=== PATIENT | female | born 1955 | race Hispanic/Latino ===

== ENCOUNTER → 2022-11-26 | Outpatient (CLI) | payer OTHER, MEDICARE ==
[~2022-11-26] MED LIST: REGADENOSON 0.4 MG/5 ML PF SYG IVP SCH
== END | disposition home or self-care (01) ==
LOC: RAH 08:33
PROVIDERS: ATTEND Internal Medicine
DX: R07.9 Chest pain, unspecified (principal)
CPT/HCPCS: 78452; 96374; 93017; J2785; A9500 ×2

== ENCOUNTER → 2023-02-19 | Outpatient (CLI) | payer OTHER, MEDICARE | END | disposition home or self-care (01) | LOC: SHCH 08:34 | PROVIDERS: ATTEND Internal Medicine | DX: R07.9 Chest pain, unspecified (principal); E11.9 Type 2 diabetes mellitus without complications; E78.5 Hyperlipidemia, unspecified; I10 Essential (primary) hypertension | CPT/HCPCS: 93306 ==

== ENCOUNTER → 2023-12-28 | Outpatient (CLI) | payer MEDICARE | END | disposition home or self-care (01) | LOC: RAH 09:36 | PROVIDERS: ATTEND Internal Medicine | DX: K80.20 Calculus of gallbladder without cholecystitis without obstruction (principal); R10.9 Unspecified abdominal pain; I70.90 Unspecified atherosclerosis | CPT/HCPCS: 76700 ==

== ENCOUNTER 2024-07-22 06:33 | Day surgery (SDC) | payer MEDICARE ==
--- NOTE | 2024-07-19 10:41 | EKG ---
[facility] Test Date: 2024-07-19 Test Time: 10:29:33 Pat Name: TAJ GAMEZ Department: [facility] Room: Gender: F Deputy Controller: [id number] : 1955 Requested By: ANJEL VARELA Order Number: [id number] Reading MD: Jeremiah Smith Measurements Intervals [place] Rate: 65 P: 41 NC: 141 QRS: 53 QRSD: 85 T: 52 QT: 398 QTc: 414 Interpretive Statements Sinus rhythm No previous ECG available for comparison Electronically Signed On 07-19-2024 11:21:40 CDT by Jeremiah Smith Please click the below link to view image of tracing.
[2024-07-19 10:58] LABS: BASOPHILS # (AUTO) 0.03 K/uL (0.00-0.20); BASOPHILS % (AUTO) 0.4 % (0.0-5.0); EOSINOPHILS # (AUTO) 0.22 K/uL (0.00-0.70); EOSINOPHILS % (AUTO) 3.3 % (0.0-8.0); HEMATOCRIT 39.9 % (36-48); IMMATURE GRANULOCYTE ABSOLUTE 0.03 K/uL (0-1); LYMPHOCYTES # (AUTO) 1.8 K/uL (1.0-4.8); LYMPHOCYTES % (AUTO) 27.1 % (21.0-51.0); MEAN CORPUSCULAR HEMOGLOBIN 28.3 pg (27.0-33.0); MEAN CORPUSCULAR HGB CONC 32.1 g/dL (32.0-36.0); MEAN CORPUSCULAR VOLUME 88.3 fL (79-99); MONOCYTES # (AUTO) 0.6 K/uL (0.1-1.0); MONOCYTES % (AUTO) 8.4 % (3.0-13.0); NEUTROPHILS % (AUTO) 60.4 % (40.0-77.0); PLATELET COUNT (AUTO) 140 K/uL (130-400); RED BLOOD CELL COUNT(AUTO) 4.52 MIL/uL (4.00-5.50); RED CELL DISTRIBUTION WIDTH 14.4 % (11.0-15.5); WHITE BLOOD COUNT (AUTO) 6.7 K/uL (4.8-10.8)
[2024-07-19 10:59] VITALS: BP 172/75; PULSE 67; RESP 14; TEMP 97.3
[2024-07-19 11:02] LABS: CREATININE 0.7 mg/dL (0.5-1.0); POTASSIUM 4.1 mmol/L (3.5-5.1)
[2024-07-19 11:07] LABS: INR 0.99 (0.85-1.15); PROTHROMBIN TIME 10.5 SEC (9.6-11.6)
[2024-07-19 11:08] LABS: PARTIAL THROMBOPLASTIN TIME 26.5 SEC (26.3-35.5)
[2024-07-19 11:36] LABS: APPEARANCE,URINE CLEAR (CLEAR); BILIRUBIN,URINE NEGATIVE (NEGATIVE); COLOR,URINE LIGHT-YELLOW (YELLOW); GLUCOSE, URINE (UA) >=1000 mg/dL (NEGATIVE); KETONES,URINE NEGATIVE (NEGATIVE); LEUKOCYTE ESTERASE ,URINE 500 Leu/uL (NEGATIVE); NITRATE,URINE NEGATIVE (NEGATIVE); OCCULT BLOOD,URINE NEGATIVE (NEGATIVE); PH,URINE 5.5 (5.0-8.0); PROTEIN,URINE NEGATIVE (NEGATIVE); UROBILINOGEN,URINE 0.2 mg/dL (0.2-1.0)
[2024-07-19 11:38] LABS: ADD UA MICROSCOPIC YES
[2024-07-19 11:49] LABS: MUCUS,URINE RARE LPF (None Seen); SQUAMOUS EPITHELIAL CELL,UR FEW /HPF (0-2)
--- NOTE | 2024-07-21 16:19 | NUR ---
REPORT CALLED DR VARELA AND REPORTED UA AND CULTURE. ALSO INFORMED PT IS FIRST CASE. OK TO PROCEED AND SHE WILL ORDER AN ANTIBIOTIC TOMORROW. VIKKI RN AND DEB OR ZINC ETCHER INFORMED OF MRSA.
[2024-07-22] VITALS (15 sets, daily range): BP systolic 123–164; BP diastolic 54–84; PULSE 60–79; RESP 13–23; TEMP 97.1–98
[~2024-07-22] VITALS: Ht 142.2 cm; Wt 63.0 kg
[~2024-07-22 06:33] MED LIST changes: +ASPI1TAB14 PO; +ATOR40TA71 PO; +DAPA10TA PO; +FAMO40TA7 PO; +FLUO-341 PO; +GABA-529 PO; +GLIP10TA16 PO; +LISI20TA24 PO; +MECL-244 PO; +METF-446 PO; +OMEP40CA21 PO; -REGADENOSON 0.4 MG/5 ML PF SYG IVP SCH
[2024-07-22] MEDS ORDERED: ceFAZolin SODIUM 2 GM VIAL ONE (06:44)
[2024-07-22] MEDS ORDERED: 0.9%NACL 1000ML 1,000 ML IV ONE (06:44)
[2024-07-22] MEDS ORDERED: proPOFol 10 MG/ML 20ML VIAL IV ONE ×2 (07:43→08:43)
[2024-07-22] MEDS ORDERED: MIDAZOLAM HCL 1 MG/ML 2ML VIAL ONE (07:43)
[2024-07-22] MEDS ORDERED: rocuRONium bROMide 10MG/1ML 5ML VL ONE (07:43)
[2024-07-22] MEDS ORDERED: FENTanyl CITRate PF 50 MCG/1 ML 2ML VIAL ONE ×2 (07:44→09:30)
[2024-07-22] MEDS ORDERED: acetaMINOPHEN 100 ML ONE (07:59)
[2024-07-22] MEDS ORDERED: FAMOTIDINE 20MG VIAL IV ONE (08:00)
[2024-07-22] MEDS ORDERED: INDOCYANINE GREEN 25 MG VIAL IJ ONE (08:02)
[2024-07-22] MEDS ORDERED: ondanSETRON 4MG INJ ONE (08:03)
[2024-07-22] MEDS ORDERED: ROPivacaine 0.5% 5MG/ML 30ML ONE (08:04)
[2024-07-22] MEDS ORDERED: LIDOCAINE 2%-EPI 1:200,000 20 ML VIAL IJ ONE (08:05)
[2024-07-22] MEDS: ceFAZolin SODIUM 2 GM VIAL IVPB ONE (08:20)
[2024-07-22] MEDS ORDERED: BUPIvacaine/PF 0.25% 30ML VIAL IJ ONE (08:24)
[2024-07-22] MEDS ORDERED: ePHEDrine SULFate 50 MG/ML AMPULE ONE (08:53)
[2024-07-22] MEDS ORDERED: GLYCOPYRROLATE 0.2 MG/ML 5 ML VIAL ONE (08:57)
[2024-07-22] MEDS ORDERED: NEOSTIGMINE METHYLSULFATE 1MG/ML IV ONE (08:57)
[2024-07-22] MEDS ORDERED: SUGAMMADEX SODIUM 200 MG/2 ML VIAL IV ONE (09:08)
--- NOTE | 2024-07-22 09:51 | OP ---
Operative Note: DATE OF PROCEDURE: 07/22/24 PROCEDURE PERFORMED: Robotic cholecystectomy. PREOPERATIVE DIAGNOSIS: Symptomatic cholelithiasis, POSTOPERATIVE DIAGNOSIS: same ANESTHESIA: General endotracheal. SURGEON: Anjel Raygoza MD DEVICE LEFT IN PLACE: None. FLUIDS AND BLOOD PRODUCTS: Per anesthesia report. SPECIMENS REMOVED: Gallbladder. COMPLICATIONS: None immediate. PATIENT CONDITION: Stable. Blood loss: Minimal DESCRIPTION OF PROCEDURE: The patient was brought to the operating room and placed on the operating table in a supine position. Once general endotracheal anesthesia was achieved the patient's abdomen is prepped and draped in sterile fashion. Had then proceeded to create a transverse incision at the left upper quadrant at figueroa's point and under direct visualization went through the abdominal wall with a 5 mm Optiview entered the abdominal cavity and obtain a pneumoperitoneum. After obtaining pneumoperitoneum we placed under direct visualization to 8 mm trocars one in the far right flank and the other one in the right lower abdomen. I then switched out the 5 mm trocar in the left upper quadrant for 8 mm trocar. And then placed another 8 mm trocar in the left hemiabdomen to the left of the midline through the rectus muscle for the camera. Place the patient in reverse Trendelenburg and rotated to the left. Brought the robot over top of the patient right and docked the robot. There was significant amount of adhesions to the gallbladder that were taken down with the cautery with dissection. I then proceeded to retract the gallbladder from the fundus and infundibulum and started our dissection of the hilum. We bluntly dissected the hilum to expose the cystic duct and cystic artery and once we had a critical view for safety, which was confirmed with firefly technology. We proceeded to place two clips in the cystic duct proxim ally and distally. We divided and then did the same with our cystic artery. We then proceeded to remove the gallbladder off the liver bed using Bovie cautery. Once this was done, we then proceeded to evaluate the liver bed for hemostasis. We made sure there was no bile leaks or any bleeding. I then proceeded to bring the 5 mm Endo-Catch bag through the lateral right port. Placed the gallbladder within the bag and within the bag I proceeded to drain it. We then proceeded to remove the trocar in this area and dilated the muscle with a hemostat and proceeded to remove the gallbladder through this right lateral port. I then closed the muscle with a running 2-0 V lock suture. We then proceeded to undocked our all her instruments and the robot. Removed all the trocars from the abdominal wall confirmed no bleeding. the skin incisions were closed using 4-0 Monocryl running subcuticular fashion and Dermabond. a sterile dressing was applied. The patient tolerated the procedure well. All counts correct x2 at the end of the procedure ANJEL RAYGOZA MD Jul 22, 2024 09:51
== END 2024-07-22 10:55 | disposition home or self-care (01) ==
LOC: DAH 06:33
PROVIDERS: ATTEND Student in an Organized Health Care Education/Training Program
DX: K80.20 Calculus of gallbladder without cholecystitis without obstruction (principal); I10 Essential (primary) hypertension; E10.9 Type 1 diabetes mellitus without complications; F32.A Depression, unspecified; Z98.51 Tubal ligation status; Z82.61 Family history of arthritis; Z83.3 Family history of diabetes mellitus; Z82.49 Family history of ischemic heart disease and other diseases of the circulatory system; Z79.01 Long term (current) use of anticoagulants; Z79.899 Other long term (current) drug therapy; Z98.890 Other specified postprocedural states
CPT/HCPCS: 80048; 85025; 85610; 85730; 87086 ×2; 81001; 36415; 93005; 47563; 87186; 82948 ×2; 88304; 64488; A6260; A4663; J7030 ×2; J3490 ×6; J3010 ×2; J0665; J2250; J2704 ×2; J2405; J2710; J2795; J0690 ×2; C1769; A4215; A4213; A4222; A4221; A4216; A4223 ×2; A4600